=== PATIENT | female | born 1955 | race African-American/Black ===

== ENCOUNTER 2017-01-20 17:26 | Inpatient (IN) ==
[2017-01-20] MEDS ORDERED: ALBUTEROL 2.5 MG/3 ML NEB RESP TX PRN (21:15)
[2017-01-20] MEDS ORDERED: ONDANSETRON 4 MG/2 ML VIAL IV PRN (21:17)
--- NOTE | 2017-01-20 21:27 | Hospitalist History & Physical ---
Assessment and Plan (1) COPD exacerbation Status: Acute Current Visit: Yes (2) Coronary artery disease Status: Acute Current Visit: Yes (3) Hypertension Status: Acute Current Visit: Yes (4) Tobacco abuse Status: Acute Current Visit: Yes (5) Tobacco abuse counseling Status: Acute Assessment and plan: Our plan for this patient 1. Admit the patient her service 2. Scheduled duo nebs 3. As needed albuterol 4. Doxycycline since she is allergic to fluoroquinolones and penicillin 5. Pulmonary consult 6. Inhaled corticosteroids 7. Hold Coumadin and monitor INR daily Current Visit: Yes History of Present Illness Chief complaint: Shortness of breath History of present illness: Ms. Rowland is a 61 year old female with past medical history significant for COPD hypertension and coronary artery disease who reports a 2 month history of shortness of breath. Today it seemed like her wheezing had increased. According to records from [facility] she has been in a steady decline for approximately 6 months as far as lung status. She denies any current chest pain. She is on multiple medications including inhaled steroids. She has never seen a pulmonary doctor. We accept the patient as transfer from a [place] facility although she has never been to our hospital. Home Medications Medication Instructions Recorded Confirmed Type Albuterol Sulfate [Albuterol Neb] 1 vial INH Q4HR PRN 01/20/17 01/20/17 History Metoprolol Tartrate Tab [Lopressor 25 mg PO BID 01/20/17 01/20/17 History Tab] Warfarin Sodium 2.5 mg PO DIRECTED 01/20/17 01/20/17 History Warfarin Sodium [Warfarin Sodium] 5 mg PO DIRECTED 01/20/17 01/20/17 History Allergies Allergy/AdvReac Type Severity Reaction Status Date / Time ciprofloxacin [From Cipro] Allergy Intermediate RASH Verified 01/20/17 20:10 Amoxicillin Allergy Unknown Unknown/Unable Verified 01/20/17 20:10 to obtain sulfamethoxazole AdvReac Mild Vomiting Verified 01/20/17 20:10 [From Bactrim] trimethoprim [From Bactrim] AdvReac Mild Vomiting Verified 01/20/17 20:10 Medical,Surgical,& Family Hx - Medical History Cardio: History of: Hypertension, Cardiovascular Problems (dvt 7 stents) Respiratory: History of: Respiratory Problems (emphysema) - Surgical History HEENT Surgeries: Surgical HX of: Tonsilectomy & Adenoidectomy Reproductive Surgeries: Surgical HX of;: Section, Hysterectomy - Family History Family History: Reports;: Family Heart Disease (mother mi- father heart disease , sister stents , brother mi-) - Social History Smoking Status: Current some day smoker Frequency of Alcohol Use: None Type of Drug Use: None 12 point system: reviewed and no additional remarkable complaints except as stated Exam - Constitutional Vitals: Period Temp Pulse Resp BP Sys/Yanes Pulse Ox Last 24 Hr 98.4 F 81 20 116/71 95 General appearance: under weight - Head Head exam: Present: normal inspection - Eye Eye exam: Present: EOMI Pupils: Present: HUGH - ENT ENT exam: Present: normal exam - Neck Neck exam: Present: normal inspection - Respiratory Respiratory exam: Present: prolonged expiratory phase, wheezes - Cardiovascular Cardiovascular exam: Present: regular rate and rhythm - GI/Abdominal GI/Abdominal exam: Present: normal bowel sounds - Extremities Exam Extremities exam: Present: normal inspection - Back Exam Back exam: Present: normal inspection - Neurological Exam Neurological exam: Present: alert - Psychiatric Psychiatric exam: Present: normal affect, normal mood - Skin Skin exam: Present: normal color Results - Labs Labs: Labs from outside facility displayed an INR of 3.5 magnesium of 1.9 CK-MB 2.4 myoglobin 42 troponin I less than 0.03 sodium 141 potassium 4.1 chloride 106 bicarb 25 creatinine 0.77 BUN 12 calcium 9.6 glucose 99 total bili 0.9 total protein 9.4 albumin 4.4 globulin 5 alk phos 155 ALT 25 AST 50 white count 6.15 hemoglobin 16 hematocrit 48.9 EKG normal sinus rhythm by atrial enlargement CT scan of her chest displayed severe emphysema.
[2017-01-20] MEDS: methylPREDNISolone SOD SUC 40 MG/1 ML VIAL IV SCH (21:56)
[2017-01-20] MEDS: DOXYCYCLINE HYCLATE INJ 100 MG in SODIUM CHLORIDE 0.9% 100 ML IV SCH (23:34)
[2017-01-21] MEDS: ALBUTEROL/IPRATROPIUM 3 ML NEB RESP TX SCH ×4 (01:34→20:06)
[2017-01-21] MEDS: methylPREDNISolone SOD SUC 40 MG/1 ML VIAL IV SCH ×4 (04:27→20:39)
[2017-01-21 07:38] LABS: Hematocrit 42.8 VOL% (35.7-47.0); Hemoglobin 14.3 GM/DL (12.0-16.0); Immature Granulocytes % 0.4 %; Immature Granulocytes Absolute 0.01 #; Lymphocytes # 0.6 10*3/uL (1.4-4.0); Lymphocytes % 20.3 % (21.3-54.2); Mean Corpuscular HGB Conc 33.4 GM/DL (32-36); Mean Corpuscular Hemoglobin 27 PG (27-34); Mean Corpuscular Volume 81.5 FL (87-102); Mean Platelet Volume 9.4 FL (9.6-12.0); Monocytes # 0.1 10*3/uL (0.11-0.8); Monocytes % 2.1 % (1.7-12.7); Neutrophils # 2.2 10*3/uL (1.4-7.4); Neutrophils % 77.2 % (38.7-73.9); Platelet Count 198 T/CUMM (130-400); Red Blood Count 5.25 MC/CUMM (3.8-5.5); Red Cell Distribution Width 13.3 % (9.3-17.3); White Blood Count 2.8 T/CUMM (4-12)
--- NOTE | 2017-01-21 07:51 | XRay Report ---
Portable chest Date: 01/21/2017 Clinical history: Shortness of breath Comparison: None Technique: Portable AP sitting chest Findings: The heart is small and compressed by the over expanded lungs. Calcification in the aortic knob. Calcified granulomata/nodes. Probable nipple shadow in the right midlung zone which is only identified on one film. Minimal atelectasis at the left lung base. Degenerative changes are noted with unremarkable mediastinum. Impression: COPD/bullous emphysema with evidence of old healed granulomatous disease. Atelectasis at the left lung base with chronic scarring. Probable faint nipple shadow identified only on one film. PROCEDURE INTERPRETED AT [facility] DEPARTMENT OF RADIOLOGY Final Report Signed by: Dr. Bailey Augustine
[2017-01-21 08:11] LABS: Albumin 3.1 G/DL (3.4-5.0); Bilirubin,Total 0.6 MG/DL (0.2-1.0); Calcium 8.8 MG/DL (8.5-10.1); Osmolality,Calculated 277.7 MOS/KG (273-304); Potassium 4.5 MMOL/L (3.5-5.1); Total Protein 8.4 G/DL (6.4-8.3)
[2017-01-21] MEDS: METOPROLOL TARTRATE 25 MG TABLET PO SCH ×2 (08:27→20:39)
[2017-01-21] MEDS: PANTOPRAZOLE 40 MG TABLET PO SCH (08:27)
[2017-01-21] MEDS: NICOTINE 21 MG/24 HR PATCH TRANSDERM SCH (08:27)
[2017-01-21 09:01] LABS: PT Patient Result 58.1 SECS
[2017-01-21 09:02] LABS: INR 5.5
--- NOTE | 2017-01-21 09:23 | Hospitalist Progress Note ---
Hospitalist: Subjective Interval history: Patient transferred for COPD with acute exacerbation. She states that her breathing was better but gets worse with exertion. She denies any CP. Her chronic productive cough of yellow sputum is unchanged. She has no further complaints. Exam - Constitutional Vitals: Period Temp Pulse Resp BP Sys/Yanes Pulse Ox Last 24 Hr 97 F-98.4 F 69-95 18-20 101-116/64-71 95-99 97% RA General appearance: no acute distress, under weight - Head Head exam: Present: normal inspection - Eye Eye exam: Present: EOMI Pupils: Present: HUGH - ENT ENT exam: Present: normal oropharynx - Neck Neck exam: Present: normal inspection - Respiratory Respiratory exam: Present: clear to auscultation bilaterally, prolonged expiratory phase. Absent: rales, rhonchi, wheezes - Cardiovascular Cardiovascular exam: Present: regular rate and rhythm. Absent: diastolic murmur , systolic murmur - GI/Abdominal GI/Abdominal exam: Present: normal bowel sounds, soft. Absent: guarding, tenderness - Extremities Exam Extremities exam: Absent: edema - Neurological Exam Neurological exam: Present: alert, oriented X3 - Psychiatric Psychiatric exam: Present: normal affect, normal mood - Skin Skin exam: Present: normal color, warm Results - Labs CBC & BMP: 01/21/17 06:36 01/21/17 06:36 - Impressions 1. Acute on chronic dyspnea 2. COPD with acute exacerbation 3. Tobacco use, counselled about ill health effects of smoking and encouraged cessation (10 minutes spent on counseling); on nicotine patch 4. h/o HTN: bp controlled 5. h/o recurrent DVTs; on coumadin; supratherapuetic 6. Supratherapeutic INR: 5.5; will hold coumadin 7. h/o ASCAD: on beta uzair; add baby asa; check lipids Plan: as noted above +continue steroids/bronchodilators/antibiotic/anti tussive therapy; appreciate help from pulmonary; monitor INR
[2017-01-21] MEDS: BUDESONIDE/FORMOTEROL 160-4.5 INHALER 6 GM INH SCH ×2 (09:37→20:39)
[2017-01-21] MEDS: DOXYCYCLINE HYCLATE INJ 100 MG in SODIUM CHLORIDE 0.9% 100 ML IV SCH ×2 (11:20→20:40)
--- NOTE | 2017-01-21 11:32 | Pulmonology Consult Note ---
History of Present Illness Chief complaint: COPD. Shortness of breath. History of present illness: Dinesh Villanueva, [facility], acting as scribe for Dr. Osacr Gracia Ms. Rowland is a 61-year-old -[place] female who we have been asked to see in pulmonary consultation for evaluation and treatment. The request for consultation was made by Dr. Carreno. She was transferred from [facility] secondary to increasing shortness of breath and wheeze but they could not get under good control here. She was accepted by Dr. Waterman for higher level of care. She reported an approximately 2 month long history of shortness of breath. Of note, she has a history of tobacco abuse. Upon questioning, she states that she quit smoking earlier this week. She has a productive cough with discolored sputum. She denies fever chills. On evaluation, she was found to have an acute exacerbation of COPD and was admitted for further evaluation and care. She denies any cardiac angina or palpitations. There is been no bleeding from any site. Specifically, no hemoptysis. No change in bowel or bladder habits. She denies dysphagia or reflux. No TIA symptoms or syncope. All other systems were reviewed and were negative. 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 She was a smoker until earlier this week. She states that she smoked less than 1 pack per day. She denies alcohol. Chest x-ray. Done 01/21/2017. My interpretation. Hyperinflation. COPD/ bullous emphysema. Old healed granulomatous disease. Atelectasis at the left lung base with chronic scarring. No acute infiltrate, no masses, or pulmonary edema. Laboratory: White count 2800 with 77.2% segs, 20.3% lymphs, and 2.1% monos; H&H 14.3/42.8 with low to normal indices and normal red blood cell distribution width;; platelet count 198,000; INR 5.5; creatinine 0.90, BUN 16, sodium 138, potassium 4.5; liver function tests within normal limits with the exception of a minimally elevated alkaline phosphatase; calcium 8.8, albumin 3.1, total protein 8.4 Home Medications Medication Instructions Recorded Confirmed Type Albuterol Sulfate [Albuterol Neb] 1 vial INH Q4HR PRN 01/20/17 01/20/17 History Metoprolol Tartrate Tab [Lopressor 25 mg PO BID 01/20/17 01/20/17 History Tab] Warfarin Sodium 2.5 mg PO DIRECTED 01/20/17 01/20/17 History Warfarin Sodium [Warfarin Sodium] 5 mg PO DIRECTED 01/20/17 01/20/17 History Allergies Allergy/AdvReac Type Severity Reaction Status Date / Time ciprofloxacin [From Cipro] Allergy Intermediate RASH Verified 01/20/17 20:10 Amoxicillin Allergy Unknown Unknown/Unable Verified 01/20/17 20:10 to obtain sulfamethoxazole AdvReac Mild Vomiting Verified 01/20/17 20:10 [From Bactrim] trimethoprim [From Bactrim] AdvReac Mild Vomiting Verified 01/20/17 20:10 Exam (Pulmonay) H&P - Constitutional Vitals: Period Temp Pulse Resp BP Sys/Yanes Pulse Ox Last 24 Hr 97 F-98.4 F 69-95 18-20 101-131/64-83 95-99 Exam: Psych: Oriented x 3; a pleasant and cooperative patient HEENT: Pupils, irises, sclera, conjunctiva, and eyelids are normal. The face is symmetrical without rash or masses. Lips, tongue, buccal mucosa, soft and hard palates, and pharynx are WNL Neck: Symmetrical. Thyroid was not palpated. Lymphatics: No submandibular, cervical, or supraclavicular adenopathy Chest: Symmetrical and hyperinflated with large airway and high-pitched peripheral wheezes Breasts: Deferred CV: Regular without murmur, rub, or gallop Arterial: Carotids with a good upstroke. There is no bruit. Upper extremity pulses are palpable. Lower extremity pulses are palpable. Venous: Exam of the neck, upper, and lower extremities is normal Abd: No appreciable organomegaly, masses, tenderness, or bruit; Bowel sounds are positive 4; The aorta was not palpated /Rectal: Deferred Extremities: No clubbing, cyanosis, edema, or obvious DVT; bilateral JEAN hose are in use Skin: No cancerous or infectious lesions of the exposed, examined skin; the perineal area was not examined M/S: Age appropriate loss of the normal curvature of the cervical, thoracic, and lumbar spine Neurological: Cranial nerves are intact, Long tract motor function is intact; Sensory exam was not done; gait was not tested. The remainder of the exam was noncontributory. Impression: #1: Acute exacerbation of COPD #2: Tobacco abuse #3: COPD/bullous emphysema #4: History of DVT #5: Chronic anticoagulation presently with supratherapeutic INR #6: Arteriosclerotic heart disease #7: Hypertension #8: See past history Plan: #1: Start Singulair 10 mg daily #2: Start IV Aminophyllin. Will give 250 mg bolus over 4 hours then run at 12 mg/h. #3: Check sputum for Gram stain, culture and sensitivity #4: Start Mucinex 600 mg twice daily #5: Agree with Solu-Medrol #6: Daily theophylline level beginning tomorrow #7: See orders We appreciate this consult and will follow along with you. Medical,Surgical,& Family Hx - Medical History Cardio: History of: Hypertension, Cardiovascular Problems (dvt 7 stents) Respiratory: History of: Respiratory Problems (emphysema) - Surgical History HEENT Surgeries: Surgical HX of: Tonsilectomy & Adenoidectomy Reproductive Surgeries: Surgical HX of;: Section, Hysterectomy - Family History Family History: Reports;: Family Heart Disease (mother mi- father heart disease , sister stents , brother mi-) - Social History Smoking Status: Current some day smoker Frequency of Alcohol Use: None Type of Drug Use: None Results - Labs CBC & BMP: 01/21/17 06:36 01/21/17 06:36
[2017-01-21] MEDS ORDERED: AMINOPHYLLINE 250 MG in SODIUM CHLORIDE 0.9% 100 ML IV ONE (12:00)
[2017-01-21] MEDS: MONTELUKAST 10 MG TABLET PO SCH (12:27)
[2017-01-21] MEDS ORDERED: AMINOPHYLLINE 250 MG in SODIUM CHLORIDE 0.9% 240 ML IV SCH (16:00)
[2017-01-22] MEDS: ALBUTEROL/IPRATROPIUM 3 ML NEB RESP TX SCH ×4 (01:58→20:04)
[2017-01-22] MEDS: methylPREDNISolone SOD SUC 40 MG/1 ML VIAL IV SCH ×4 (03:14→20:44)
[2017-01-22 06:17] LABS: Hematocrit 40.7 VOL% (35.7-47.0); Hemoglobin 13.9 GM/DL (12.0-16.0); Immature Granulocytes Absolute 0.11 #; Lymphocytes # 0.5 10*3/uL (1.4-4.0); Lymphocytes % 4.3 % (21.3-54.2); Mean Corpuscular HGB Conc 34.2 GM/DL (32-36); Mean Corpuscular Hemoglobin 28 PG (27-34); Mean Corpuscular Volume 81.4 FL (87-102); Mean Platelet Volume 9.7 FL (9.6-12.0); Monocytes # 0.2 10*3/uL (0.11-0.8); Monocytes % 2.2 % (1.7-12.7); Neutrophils # 10.3 10*3/uL (1.4-7.4); Neutrophils % 92.5 % (38.7-73.9); Platelet Count 225 T/CUMM (130-400); Red Cell Distribution Width 13.3 % (9.3-17.3); White Blood Count 11.1 T/CUMM (4-12)
[2017-01-22 06:40] LABS: INR 3.6
[2017-01-22 06:43] LABS: PT Patient Result 37.7 SECS; Partial Thromboplastin Time 43.9 SECS (0-40)
[2017-01-22 06:45] LABS: Calcium 8.7 MG/DL (8.5-10.1); Osmolality,Calculated 280.5 MOS/KG (273-304); Potassium 4.3 MMOL/L (3.5-5.1); Risk Ratio 2.44; VLDL CHOLESTEROL 13.2 MG/DL
[2017-01-22 07:51] LABS: Hypochromasia 2+; Lymphocytes 3 % (20-55); Platelet Estimate Adequate; Segmented Neutrophils 93 % (50-85); Total Cells Counted 100
[2017-01-22] MEDS: ASPIRIN EC 81 MG TABLET PO SCH (08:17)
[2017-01-22] MEDS: PANTOPRAZOLE 40 MG TABLET PO SCH (08:17)
[2017-01-22] MEDS: METOPROLOL TARTRATE 25 MG TABLET PO SCH ×2 (08:17→20:44)
[2017-01-22] MEDS: MONTELUKAST 10 MG TABLET PO SCH (08:17)
[2017-01-22] MEDS: NICOTINE 21 MG/24 HR PATCH TRANSDERM SCH (08:17)
[2017-01-22] MEDS: BUDESONIDE/FORMOTEROL 160-4.5 INHALER 6 GM INH SCH ×2 (08:18→20:44)
[2017-01-22] MEDS: DOXYCYCLINE HYCLATE INJ 100 MG in SODIUM CHLORIDE 0.9% 100 ML IV SCH ×2 (08:32→20:44)
--- NOTE | 2017-01-22 09:27 | Hospitalist Progress Note ---
Hospitalist: Subjective Interval history: Patient started on aminophylline by pulmonary on yesterday. She states that her breathing has improved. Her cough is dry. She has no further complaints. Exam - Constitutional Vitals: Period Temp Pulse Resp BP Sys/Yanes Pulse Ox Last 24 Hr 96.5 F-97.8 F 68-86 16-20 131-148/69-85 93-99 General appearance: no acute distress, under weight - Head Head exam: Present: normal inspection - Eye Eye exam: Present: EOMI Pupils: Present: HUGH - Respiratory Respiratory exam: Present: clear to auscultation bilaterally. Absent: rales, rhonchi, wheezes (prolonged expiratory phase) - Cardiovascular Cardiovascular exam: Present: regular rate and rhythm - GI/Abdominal GI/Abdominal exam: Present: normal bowel sounds, soft. Absent: tenderness - Extremities Exam Extremities exam: Absent: edema - Neurological Exam Neurological exam: Present: alert, oriented X3 - Psychiatric Psychiatric exam: Present: normal affect, normal mood Results - Labs CBC & BMP: 01/22/17 05:14 01/22/17 05:14 - Impressions 1. Acute on chronic dyspnea: improving 2. COPD with acute exacerbation: being seen by pulmonary appreciate help. On theodur; Theodur level 6.5 3. Tobacco use, counselled about ill health effects of smoking and encouraged cessation (10 minutes spent on counseling); on nicotine patch 4. h/o HTN: bp controlled 5. h/o recurrent DVTs; on coumadin as outpatient; supratherapuetic INR but improved 6. Supratherapeutic INR: 3.6; continue to hold coumadin 7. h/o ASCAD: on beta uzair; add baby asa; check lipids Plan: as noted above; appreciate help from pulmonary; continue steroids/ bronchodilator therapy/leukotrien inhibitor therapy
--- NOTE | 2017-01-22 09:33 | Pulmonology Progress Note ---
Pulmonary - PN: Subj Interval history: There is a 61-year-old black female whom I saw in pulmonary consultation 2016. My impressions were. #1: Acute exacerbation of COPD #2: Tobacco abuse #3: COPD/bullous emphysema #4: History of DVT #5: Chronic anticoagulation presently with supratherapeutic INR #6: Arteriosclerotic heart disease #7: Hypertension #8: See past history 01/22/2017. Patient was started on IV Aminophyllin and Singulair. Her wheezing is a lot better. I am converting her present IV theophylline dose to theophylline 150 mg twice daily. Patient is growing a gram-negative rick and she has some gram-positive cocci. Her antibiotic is doxycycline. I am going to add gentamicin. All started 50 mg IV piggyback every 8 hours have asked pharmacology to help with adjustment. Will follow daily BUN and creatinine. Present creatinine is 0.90 INR has dropped from 5.5-3.6. White count is now 11, 192.56. Overall the patient says she feels better today. Physical exam. Vital signs. See below. Afebrile. General. No distress comfortable sitting in bed Psychiatric oriented 3 Neurological. Cranial nerves are intact long track motor functions intact Face. Symmetrical. No edema of the tongue or lips. Neck symmetrical. No meningismus Lymphatics. No submandibular cervical supraclavicular or epitrochlear adenopathy. Chest. Symmetrical. Expiration is prolonged. Previously noted large and small airway wheezes are markedly improved. There is a good bit of loose congestion which represents secretions she should be able to mobilize soon Heart regular. Abdomen benign Extremities no clubbing no edema no deep venous thrombophlebitis The remainder the physical exam is negative. Plan: 01/21/2070 #1: Start Singulair 10 mg daily #2: Start IV Aminophyllin. Will give 250 mg bolus over 4 hours then run at 12 mg/h. #3: Check sputum for Gram stain, culture and sensitivity #4: Start Mucinex 600 mg twice daily #5: Agree with Solu-Medrol #6: Daily theophylline level beginning tomorrow #7: See orders 01/22/2017. 1. See today's note above. 2. Convert theophylline 150 mg twice daily 3. Start gentamicin. Consult pharmacology. Daily BMP 4. Await final cultures on sputum. Exam (Progress Note) - Constitutional Vitals: Period Temp Pulse Resp BP Sys/Yanes Pulse Ox Last 24 Hr 96.5 F-97.8 F 68-86 16-20 131-148/69-85 93-99 Results - Labs CBC & BMP: 01/22/17 05:14 01/22/17 05:14
[2017-01-22] MEDS: GENTAMICIN INJ 240 MG in SODIUM CHLORIDE 0.9% 100 ML IV SCH (11:16)
[2017-01-22] MEDS: THEOPHYLLINE ER 300 MG TABLET PO SCH (16:10)
[2017-01-23] MEDS: ALBUTEROL/IPRATROPIUM 3 ML NEB RESP TX SCH ×4 (01:02→19:42)
[2017-01-23] MEDS: methylPREDNISolone SOD SUC 40 MG/1 ML VIAL IV SCH ×4 (03:06→21:13)
[2017-01-23 06:47] LABS: Basophils % 0.1 % (0.0-0.8); Hematocrit 39.2 VOL% (35.7-47.0); Hemoglobin 13.2 GM/DL (12.0-16.0); Immature Granulocytes % 0.8 %; Immature Granulocytes Absolute 0.08 #; Lymphocytes # 0.4 10*3/uL (1.4-4.0); Lymphocytes % 4.1 % (21.3-54.2); Mean Corpuscular HGB Conc 33.7 GM/DL (32-36); Mean Corpuscular Hemoglobin 27 PG (27-34); Mean Corpuscular Volume 81.5 FL (87-102); Mean Platelet Volume 9.7 FL (9.6-12.0); Monocytes # 0.1 10*3/uL (0.11-0.8); Monocytes % 1.3 % (1.7-12.7); Neutrophils # 9.5 10*3/uL (1.4-7.4); Neutrophils % 93.7 % (38.7-73.9); Platelet Count 207 T/CUMM (130-400); Red Blood Count 4.81 MC/CUMM (3.8-5.5); Red Cell Distribution Width 13.4 % (9.3-17.3); White Blood Count 10.2 T/CUMM (4-12)
[2017-01-23 07:18] LABS: Calcium 8.7 MG/DL (8.5-10.1); Osmolality,Calculated 281.5 MOS/KG (273-304); Potassium 4.3 MMOL/L (3.5-5.1)
[2017-01-23 07:21] LABS: PT Patient Result 20.8 SECS
[2017-01-23 07:23] LABS: Partial Thromboplastin Time 36.4 SECS (0-40)
[2017-01-23 07:27] LABS: INR 2.1
[2017-01-23 07:48] LABS: Band Neutrophils 3 % (0-10); Hypochromasia 2+; Lymphocytes 2 % (20-55); Microcytosis Slight; Platelet Estimate Adequate; Segmented Neutrophils 93 % (50-85); Total Cells Counted 100
[2017-01-23 07:49] LABS: PT Patient Result 22.6 SECS
[2017-01-23] MEDS: THEOPHYLLINE ER 300 MG TABLET PO SCH ×2 (08:14→16:06)
[2017-01-23] MEDS: MONTELUKAST 10 MG TABLET PO SCH (08:14)
[2017-01-23] MEDS: ASPIRIN EC 81 MG TABLET PO SCH (08:14)
[2017-01-23] MEDS: NICOTINE 21 MG/24 HR PATCH TRANSDERM SCH (08:15)
[2017-01-23] MEDS: PANTOPRAZOLE 40 MG TABLET PO SCH (08:15)
[2017-01-23] MEDS: METOPROLOL TARTRATE 25 MG TABLET PO SCH ×2 (08:15→21:13)
[2017-01-23] MEDS: BUDESONIDE/FORMOTEROL 160-4.5 INHALER 6 GM INH SCH ×2 (08:16→21:13)
[2017-01-23] MEDS: DOXYCYCLINE HYCLATE INJ 100 MG in SODIUM CHLORIDE 0.9% 100 ML IV SCH (08:32)
[2017-01-23] MEDS: GENTAMICIN INJ 240 MG in SODIUM CHLORIDE 0.9% 100 ML IV SCH (10:09)
--- NOTE | 2017-01-23 10:31 | Pulmonology Progress Note ---
Pulmonary - PN: Subj Interval history: There is a 61-year-old black female whom I saw in pulmonary consultation 2016. My impressions were. #1: Acute exacerbation of COPD #2: Tobacco abuse #3: COPD/bullous emphysema #4: History of DVT #5: Chronic anticoagulation presently with supratherapeutic INR #6: Arteriosclerotic heart disease #7: Hypertension #8: See past history 01/22/2017. Patient was started on IV Aminophyllin and Singulair. Her wheezing is a lot better. I am converting her present IV theophylline dose to theophylline 150 mg twice daily. Patient is growing a gram-negative rick and she has some gram-positive cocci. Her antibiotic is doxycycline. I am going to add gentamicin. All started 50 mg IV piggyback every 8 hours have asked pharmacology to help with adjustment. Will follow daily BUN and creatinine. Present creatinine is 0.90 INR has dropped from 5.5-3.6. White count is now 11, 192.56. Overall the patient says she feels better today. 01/23/2017. Patient's breathing continues to improve. She is moving air better and expiration is more complete. She still has some wheezing. Her theophylline level was 5.8. INR is 2.1. CBC is stable. Electrolytes are normal. Creatinine is 0.9 BUN is 21. Sputum studies are growing a gram- negative rick. So far no ID and no sensitivities. Gentamicin was started on . Creatinine is stable. Physical exam. Vital signs. See below. Afebrile. General. No distress comfortable sitting in bed Psychiatric oriented 3 Neurological. Cranial nerves are intact long track motor functions intact Face. Symmetrical. No edema of the tongue or lips. Neck symmetrical. No meningismus Lymphatics. No submandibular cervical supraclavicular or epitrochlear adenopathy. Chest. Symmetrical. Expiration is prolonged. Previously noted large and small airway wheezes are markedly improved. Large and small airway wheezes are better on a daily basis and patient has much less large airway congestion now as compared to before Heart regular. Abdomen benign Extremities no clubbing no edema no deep venous thrombophlebitis The remainder the physical exam is negative. Plan: 01/21/2070 #1: Start Singulair 10 mg daily #2: Start IV Aminophyllin. Will give 250 mg bolus over 4 hours then run at 12 mg/h. #3: Check sputum for Gram stain, culture and sensitivity #4: Start Mucinex 600 mg twice daily #5: Agree with Solu-Medrol #6: Daily theophylline level beginning tomorrow #7: See orders 01/22/2017. 1. See today's note above. 2. Convert theophylline 150 mg twice daily 3. Start gentamicin. Consult pharmacology. Daily BMP 4. Await final cultures on sputum. 01/23/2017. 1. See today's note above. 2. Gentamicin 3. Sputum. Gram-negative rods. ID and sensitivities are pending Exam (Progress Note) - Constitutional Vitals: Period Temp Pulse Resp BP Sys/Yanes Pulse Ox Last 24 Hr 97.4 F-98 F 66-92 16-20 116-153/66-87 93-99 Results - Labs CBC & BMP: 01/23/17 05:57 01/23/17 05:57
--- NOTE | 2017-01-23 12:17 | Hospitalist Progress Note ---
Assessment and Plan (1) Lower respiratory infection Status: Acute Assessment and plan: Patient has isolated suggestion of staphylococcal species as well as gram- negative load. Patient does have COPD with a outpatient failure of treatment. Patient will be put on aztreonam 1 g every 8 hours and vancomycin 1.25 g IV every 12 hours will get pharmacy consultation for pharmacokinetics and dosing of subsequent infusions of vancomycin level by protocol will be done with the fourth dose. Discontinue gentamicin and discontinue doxycycline Current Visit: Yes (2) COPD exacerbation Status: Acute Assessment and plan: This is most likely bacterial exacerbation of chronic obstructive pulmonary disease. Patient with active bronchiolitis at presentation. She had some purulence of the sputum with aspiration of the above-mentioned organisms. Whilst the patient is he will be treated with IV antibiotic subsequent to verification of the isolates. If he is more expectoration the patient is here we should obtain a annual sputum because cristina can change. Current Visit: Yes Hospitalist: Subjective Interval history: Patient has been seen interviewed and examined and chart has been reviewed. Patient admitted to the hospital with acute exacerbation of COPD. Sputum obtained does show a few epithelial cells few white cells and has grown gram- positive cocci in chains pairs and clusters as well as gram-negative Anderson mammogram is still pending at this point. Because of this gram-negative anderson, patient has been started on IV gentamicin. No sitting about the prior history of this patient has will probably had resistant Pseudomonas other resistant organisms. No Tuesday was treated with this patient with antibiotics because of a preceding history of COPD and is acute exacerbation, preferably patient needs to be on aztreonam 1 g IV every 8 hours and vancomycin 1.25 g every 12 hours. Await the final results of sputum cultures. Exam - Constitutional Vitals: Period Temp Pulse Resp BP Sys/Yanes Pulse Ox Last 24 Hr 97.4 F-98 F 64-92 16-20 116-159/66-83 93-99 General appearance: no acute distress, under weight - Head Head exam: Present: normal inspection - Eye Eye exam: Present: EOMI Pupils: Present: HUGH - ENT ENT exam: Present: normal oropharynx - Respiratory Respiratory exam: Present: clear to auscultation bilaterally - Cardiovascular Cardiovascular exam: Present: regular rate and rhythm - Extremities Exam Extremities exam: Present: normal inspection - Neurological Exam Neurological exam: Present: alert, oriented X3, CN II-XII intact - Psychiatric Psychiatric exam: Present: normal affect, normal mood - Skin Skin exam: Present: normal color, warm, dry Results - Labs CBC & BMP: 01/23/17 05:57 01/23/17 05:57 Lab Results: I have reviewed the past 24 hour labs (The portal sputum culture is noted. Antibiogram is pending)
[2017-01-23] MEDS: VANCOMYCIN INJ 750 MG in SODIUM CHLORIDE 0.9% 250 ML IV SCH (14:45)
[2017-01-23] MEDS: AZTREONAM 1,000 MG in SODIUM CHLORIDE 0.9% 50 ML IV SCH ×2 (14:45→21:13)
[2017-01-24] MEDS: ALBUTEROL/IPRATROPIUM 3 ML NEB RESP TX SCH ×4 (00:27→19:37)
[2017-01-24] MEDS: VANCOMYCIN INJ 750 MG in SODIUM CHLORIDE 0.9% 250 ML IV SCH ×2 (03:17→15:18)
[2017-01-24] MEDS: methylPREDNISolone SOD SUC 40 MG/1 ML VIAL IV SCH ×4 (03:17→20:31)
[2017-01-24] MEDS: AZTREONAM 1,000 MG in SODIUM CHLORIDE 0.9% 50 ML IV SCH ×3 (05:18→21:30)
[2017-01-24 07:32] LABS: INR 1.5; PT Patient Result 15.5 SECS
[2017-01-24 07:42] LABS: Hematocrit 40.6 VOL% (35.7-47.0); Hemoglobin 13.9 GM/DL (12.0-16.0); Immature Granulocytes % 1.4 %; Immature Granulocytes Absolute 0.12 #; Lymphocytes # 0.4 10*3/uL (1.4-4.0); Lymphocytes % 4.7 % (21.3-54.2); Mean Corpuscular HGB Conc 34.2 GM/DL (32-36); Mean Corpuscular Hemoglobin 28 PG (27-34); Mean Corpuscular Volume 82.2 FL (87-102); Mean Platelet Volume 9.9 FL (9.6-12.0); Monocytes # 0.2 10*3/uL (0.11-0.8); Monocytes % 2.5 % (1.7-12.7); Neutrophils # 7.8 10*3/uL (1.4-7.4); Neutrophils % 91.4 % (38.7-73.9); Platelet Count 226 T/CUMM (130-400); Red Blood Count 4.94 MC/CUMM (3.8-5.5); Red Cell Distribution Width 13.3 % (9.3-17.3); White Blood Count 8.6 T/CUMM (4-12)
[2017-01-24 07:54] LABS: Bilirubin,Total 0.6 MG/DL (0.2-1.0); Calcium 8.5 MG/DL (8.5-10.1); Magnesium 1.9 MG/DL (1.8-2.4); Osmolality,Calculated 280.5 MOS/KG (273-304); Phosphorous 2.9 MG/DL (2.5-4.9); Potassium 4.1 MMOL/L (3.5-5.1); Total Protein 7.7 G/DL (6.4-8.3)
[2017-01-24 08:08] LABS: Giant Platelets Few; Hypochromasia 1+; Lymphocytes 4 % (20-55); Microcytosis Slight; Platelet Estimate Adequate; Segmented Neutrophils 90 % (50-85); Total Cells Counted 100
[2017-01-24] MEDS: ASPIRIN EC 81 MG TABLET PO SCH (09:46)
[2017-01-24] MEDS: THEOPHYLLINE ER 300 MG TABLET PO SCH ×2 (09:46→17:19)
[2017-01-24] MEDS: METOPROLOL TARTRATE 25 MG TABLET PO SCH ×2 (09:47→20:31)
[2017-01-24] MEDS: MONTELUKAST 10 MG TABLET PO SCH (09:47)
[2017-01-24] MEDS: NICOTINE 21 MG/24 HR PATCH TRANSDERM SCH (09:50)
[2017-01-24] MEDS: BUDESONIDE/FORMOTEROL 160-4.5 INHALER 6 GM INH SCH ×2 (09:51→20:32)
[2017-01-24] MEDS: PANTOPRAZOLE 40 MG TABLET PO SCH (10:11)
--- NOTE | 2017-01-24 10:14 | Hospitalist Progress Note ---
Assessment and Plan (1) COPD exacerbation Status: Acute Assessment and plan: We will continue empiric antibiotic coverage and inhaled bronchodilators as previously ordered. Will recheck chest x-ray in a.m. Current Visit: Yes (2) Lower respiratory infection Status: Acute Assessment and plan: Sputum culture and sensitivity significant for [employer]. We will continue empiric antibiotic coverage as previously ordered. Current Visit: Yes Hospitalist: Subjective Interval history: Patient seen and examined; chart reviewed. No significant overnight events reported per staff. Sputum culture and sensitivity significant for [employer]. Empiric antibiotic coverage remains in progress Exam - Constitutional Vitals: Period Temp Pulse Resp BP Sys/Yanes Pulse Ox Last 24 Hr 97.2 F-99.2 F 64-80 16-20 137-160/78-91 94-100 General appearance: normal weight, no acute distress - Head Head exam: Present: normal inspection, normocephalic - Eye Eye exam: Present: EOMI Pupils: Present: HUGH, normal accommodation - ENT ENT exam: Present: normal exam, normal external ear exam, normal oropharynx - Neck Neck exam: Present: normal inspection, thyromegaly. Absent: lymphadenopathy, meningismus, tenderness - Respiratory Respiratory exam: Present: clear to auscultation bilaterally. Absent: rales, rhonchi, stridor, wheezes - Cardiovascular Cardiovascular exam: Present: regular rate and rhythm. Absent: carotid bruit, diastolic murmur, gallop, JVD, rubs, systolic murmur - GI/Abdominal GI/Abdominal exam: Present: normal bowel sounds, soft - Extremities Exam Extremities exam: Present: normal inspection, normal capillary refill, full ROM. Absent: edema - Back Exam Back exam: Present: normal inspection - Neurological Exam Neurological exam: Present: alert, oriented X3, CN II-XII intact - Psychiatric Psychiatric exam: Present: normal affect, normal mood - Skin Skin exam: Present: normal color, warm, dry Results - Labs CBC & BMP: 01/24/17 05:26 01/24/17 05:26 Lab Results: I have reviewed the past 24 hour labs
--- NOTE | 2017-01-24 12:08 | Pulmonology Progress Note ---
Pulmonary - PN: Subj Interval history: Dinesh Villanueva, BANNERBECKY-, acting as scribe for Dr. Oscar Gracia There is a 61-year-old black female who we saw in pulmonary consultation 2016. At that time, our impressions were: #1: Acute exacerbation of COPD #2: Tobacco abuse #3: COPD/bullous emphysema #4: History of DVT #5: Chronic anticoagulation presently with supratherapeutic INR #6: Arteriosclerotic heart disease #7: Hypertension #8: See past history 01/22/2017. Patient was started on IV Aminophyllin and Singulair. Her wheezing is a lot better. I am converting her present IV theophylline dose to theophylline 150 mg twice daily. Patient is growing a gram-negative rick and she has some gram-positive cocci. Her antibiotic is doxycycline. I am going to add gentamicin. All started 50 mg IV piggyback every 8 hours have asked pharmacology to help with adjustment. Will follow daily BUN and creatinine. Present creatinine is 0.90 INR has dropped from 5.5-3.6. White count is now 11, 192.56. Overall the patient says she feels better today. 01/23/2017. Patient's breathing continues to improve. She is moving air better and expiration is more complete. She still has some wheezing. Her theophylline level was 5.8. INR is 2.1. CBC is stable. Electrolytes are normal. Creatinine is 0.9 BUN is 21. Sputum studies are growing a gram- negative rick. So far no ID and no sensitivities. Gentamicin was started on . Creatinine is stable. 01/24/2017. The patient's sputum culture grew [employer]. Dr. Simmons adjusted the patient's antibiotics for this yesterday. We converted her IV Aminophyllin to oral theophylline and she is tolerating this fine. She is wheeze free. She denies a productive cough. From a pulmonary standpoint she is markedly improved. Medications been reviewed. We made no changes today. Labs been reviewed. White count is 8600 with 91.4% segs; H&H 13.9/40.6; platelet count 226,000; INR 1.5; creatinine 0.90, BUN 20, electrolytes are normal; liver function test within normal limits; calcium 8.5, albumin 3.0, total protein 7.7; theophylline level 7.7 Exam (Progress Note) - Constitutional Vitals: Period Temp Pulse Resp BP Sys/Yanes Pulse Ox Last 24 Hr 97.2 F-99.2 F 70-80 16-20 137-160/78-91 93-100 Exam: Chest is wheeze free Heart no gallop Abdomen is nontender and nondistended; bowel sounds are positive 4 Extremities with nothing to suggest acute deep venous thrombophlebitis Psychiatric oriented 3 Neurologic long-term motor function is intact Plan: Patient is markedly improved from a pulmonary standpoint. She needs to continue Singulair and theophylline at discharge. As discussed with her, she needs complete tobacco cessation. Dr. Simmons is managing the patient's antibiotics. We will sign off. Please reconsult as needed. Results - Labs CBC & BMP: 01/24/17 05:26 01/24/17 05:26
[2017-01-25] MEDS: ALBUTEROL/IPRATROPIUM 3 ML NEB RESP TX SCH ×3 (01:05→13:03)
[2017-01-25] MEDS: methylPREDNISolone SOD SUC 40 MG/1 ML VIAL IV SCH ×2 (03:43→08:48)
[2017-01-25] MEDS: VANCOMYCIN INJ 750 MG in SODIUM CHLORIDE 0.9% 250 ML IV SCH (03:46)
[2017-01-25] MEDS: AZTREONAM 1,000 MG in SODIUM CHLORIDE 0.9% 50 ML IV SCH (05:30)
[2017-01-25 07:45] LABS: Hematocrit 42.2 VOL% (35.7-47.0); Hemoglobin 14.2 GM/DL (12.0-16.0); Immature Granulocytes Absolute 0.07 #; Lymphocytes # 0.5 10*3/uL (1.4-4.0); Mean Corpuscular HGB Conc 33.6 GM/DL (32-36); Mean Corpuscular Hemoglobin 28 PG (27-34); Mean Corpuscular Volume 81.9 FL (87-102); Mean Platelet Volume 10.1 FL (9.6-12.0); Monocytes # 0.2 10*3/uL (0.11-0.8); Monocytes % 2.8 % (1.7-12.7); Neutrophils # 6.1 10*3/uL (1.4-7.4); Neutrophils % 89.2 % (38.7-73.9); Platelet Count 256 T/CUMM (130-400); Red Blood Count 5.15 MC/CUMM (3.8-5.5); Red Cell Distribution Width 13.2 % (9.3-17.3); White Blood Count 6.9 T/CUMM (4-12)
[2017-01-25 08:11] LABS: Albumin 2.9 G/DL (3.4-5.0); Bilirubin,Total 0.9 MG/DL (0.2-1.0); Calcium 8.8 MG/DL (8.5-10.1); Magnesium 2.3 MG/DL (1.8-2.4); Osmolality,Calculated 283.4 MOS/KG (273-304); Phosphorous 3.1 MG/DL (2.5-4.9); Potassium 4.5 MMOL/L (3.5-5.1); Total Protein 7.6 G/DL (6.4-8.3)
[2017-01-25] MEDS: ASPIRIN EC 81 MG TABLET PO SCH (08:47)
[2017-01-25] MEDS: THEOPHYLLINE ER 300 MG TABLET PO SCH (08:47)
[2017-01-25] MEDS: MONTELUKAST 10 MG TABLET PO SCH (08:47)
[2017-01-25] MEDS: NICOTINE 21 MG/24 HR PATCH TRANSDERM SCH (08:48)
[2017-01-25] MEDS: PANTOPRAZOLE 40 MG TABLET PO SCH (08:48)
[2017-01-25] MEDS: METOPROLOL TARTRATE 25 MG TABLET PO SCH (08:48)
[2017-01-25] MEDS: BUDESONIDE/FORMOTEROL 160-4.5 INHALER 6 GM INH SCH (08:49)
[2017-01-25] MEDS ORDERED: LEVOFLOXACIN 500 MG TABLET PO SCH (09:00)
--- NOTE | 2017-01-25 11:37 | Discharge Summary ---
Hospital Course - Hospital Course Hospital Course: This is a pleasant 61-year-old female that presented to [facility] on the night of January 20, 2017 as a direct admit from [facility] in [place], [place] for the further evaluation of shortness of breath. The patient has a medical history significant for chronic obstructive pulmonary disease, hypertension, coronary artery disease, nicotine addiction, and deep vein thrombosis. The patient has a surgical history significant for tonsillectomy, adenoidectomy, section, and hysterectomy. The patient reported the gradual onset of symptoms several months prior to presentation. She reported that her respiratory status has rapidly declined in recent months. She noted an increase in shortness of breath and wheezing on the day of presentation which prompted her to present to the ED at [facility] for further evaluation. The patient was assessed at the time of ED presentation. The patient was noted to be experiencing difficulties breathing. Prolonged inhaled bronchodilator treatments were initiated. Labs were obtained which were significant for INR 3.5, magnesium 1.9, CK-MB 2.4, myoglobin 42, troponin less than 0.03, sodium 141 , potassium 4.1, chloride 106, carbon dioxide 25, creatinine 0.77, BUN 12, calcium 9.6, glucose 99, total bilirubin 0.9, total protein 9.4, albumin 4.4, globulin 5, alkaline phosphatase 155, ALT 25, AST 50, white blood cell count 6.15, hemoglobin 16, hematocrit 40.9. EKG significant for normal sinus rhythm with biatrial enlargement. CT chest significant for severe emphysema. Hospital medicine at [facility] was contacted regarding transfer of care. The patient was subsequently transported to [facility] for direct admission to the hospitalist service for continuation of care. Empiric antibiotics, inhaled bronchodilators, intravenous corticosteroids, and gentle rehydration was initiated. Ricardo cultures were obtained. Due to the severity of the patient's pulmonary disease, a pulmonology consultation was requested. The patient was evaluated by pulmonology and recommendations were given.Sputum culture obtained at the time of admission was significant for [employer]. The patient's condition gradually improved. The patient's condition is stable. She has not experienced any significant overnight events. Today, we feel that she is indeed appropriate for discharge to follow-up with her primary care physician and technical education teacher as directed. We spoke with the patient in great detail regarding the need to refrain from tobacco use due to the severity of her chronic obstructive pulmonary disease. Smoking cessation information has been given. In addition, the patient will be discharged home on Levaquin 500 mg by mouth daily 7 days. The antimicrobial selection choice is limited due to the patient's multiple allergies. I have reviewed and agree with the discharge summary as dictated above by nurse practitioner Alfonso Saeed. - Time spent with patient Time with patient DS: Less than 30 minutes Time spent discussing smoking cessation with patient: more than 10 minutes (12 minutes) Diagnosis - Discharge Diagnosis (1) COPD exacerbation Status: Acute (2) Lower respiratory infection Status: Resolved Specialty Discharge - Follow Up or Referrals - Speciality Discharge Instructions Hospitalist Instructions: Continue to take all medications as prescribed. Please refrain from the use of tobacco use. Follow-up with technical education teacher in 7- 14 days as directed. Pulmonary Instructions: Continue to take all medications as ordered. Please refrain all from tobacco use. Follow with pulmonary in 7-14 days as directed. Discharge Plan - Discharge Data Disposition: Disch To Home/Self Care Condition at Discharge: Stable Discharge Diet: advance to your usual diet Activity: resume usual activities as tolerated Hygiene: no restrictions Weight Bearing at Discharge: full weight bearing Contact your physician if you experience:: fever over 101, Difficulty voiding, Redness or swelling, Shortness of breath - Discharge Medications New Budesonide/Formoterol 160-4.5 [Symbicort 160-4.5] 2 puff INH BID #1 inhaler Levofloxacin Tab [Levaquin Tab] 500 mg PO DAILY #7 tablet Montelukast Tab [Singulair Tab] 10 mg PO DAILY #30 tablet Theophylline ER Tab 150 mg PO BID W/MEALS #60 tablet guaiFENesin/DM LIQUID [Robitussin Dm] 10 ml PO Q4H PRN PRN Reason: Cough predniSONE TAB [PredniSONE] 5 mg PO DAILY #60 tablet Aspirin EC Tab 81 mg PO DAILY #30 tablet guaiFENesin ER TAB [Mucinex] 600 mg PO BID #60 tablet Nicotine 21 mg/24 Hr Patch [Nicoderm CQ 21 mg/24 hr Patch] 1 patch TRANSDERM DAILY #60 patch MDD 1 Continue Warfarin Sodium 2.5 mg PO DIRECTED Albuterol Sulfate [Albuterol Neb] 1 vial INH Q4HR PRN PRN Reason: Shortness Of Breath/Wheezing Metoprolol Tartrate Tab [Lopressor Tab] 25 mg PO BID #60 Warfarin Sodium 5 mg PO DIRECTED - Follow Up or Referral - Forms/Instructions Instructions: Metoprolol (By mouth), Prednisone (By mouth), Theophylline (By mouth), Aspirin (By mouth), Guaifenesin (By mouth), Nicotine (Absorbed through the skin), Levofloxacin (By mouth), Budesonide/Formoterol (By breathing), Chronic Obstructive Pulmonary Disease (DC), COPD Exacerbation, 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 Absent: conjunctival injection Pupils: Present: HUGH, normal accommodation - ENT ENT exam: Present: normal exam, normal external ear exam, normal oropharynx - Neck Neck exam: Present: normal inspection. Absent: lymphadenopathy, meningismus, tenderness, thyromegaly - Respiratory Respiratory exam: Present: clear to auscultation bilaterally. Absent: rales, rhonchi, stridor, wheezes - Cardiovascular Cardiovascular exam: Present: regular rate and rhythm. Absent: carotid bruit, diastolic murmur, gallop, JVD, rubs, tachycardia - GI/Abdominal GI/Abdominal exam: Present: normal bowel sounds, soft - Extremities Exam Extremities exam: Present: normal inspection, normal capillary refill, full ROM. Absent: edema - Back Exam Back exam: Present: normal inspection - Neurological Exam Neurological exam: Present: alert, oriented X3, CN II-XII intact - Psychiatric Psychiatric exam: Present: normal affect, normal mood - Skin Skin exam: Present: normal color, warm, dry Discharge Results Labs on day of discharge: Labs from last 24 hours 01/25/17 01/25/17 06:05 06:05 WBC 6.9 RBC 5.15 Hgb 14.2 Hct 42.2 MCV 81.9 L MCH 28 MCHC 33.6 RDW 13.2 Plt Count 256 MPV 10.1 Neut % (Auto) 89.2 H Lymph % (Auto) 7.0 L Ballard % (Auto) 2.8 Eos % (Auto) 0.0 Baso % (Auto) 0.0 Neut # (Auto) 6.1 Lymph # (Auto) 0.5 L Ballard # (Auto) 0.2 Eos # (Auto) 0.0 Baso # (Auto) 0.0 Immature Gran % 1.0 Nucleated RBC % 0.0 Immature Gran # 0.07 Nucleated RBCs # 0.00 Immature Plt Fraction 0.0 Sodium 140 Potassium 4.5 Chloride 103 Carbon Dioxide 29 Anion Gap 12.5 BUN 20 H Creatinine 0.90 GFR Calculation 70 BUN/Creatinine Ratio 22.00 H Glucose 126 H Calculated Osmolality 283.4 Calcium 8.8 Phosphorus 3.1 Magnesium 2.3 Total Bilirubin 0.90 AST 23 ALT 23 Alkaline Phosphatase 108 Total Protein 7.6 Albumin 2.9 L Globulin 4.7 H Albumin/Globulin Ratio 0.6 L DS: Provider Date of admission: 01/20/17 19:29 Primary care physician: Oscar Hauser Attending physician on admission: Grant Waterman MD Consults: 01/20/17 21:08 Consult to Dietitian [CONS] Routine Reason for Dietitian: Other 01/20/17 21:16 Consult to Physician [CONS] Routine Comment: SOB, hx asthma Consulting Provider: Oscar Gracia Consult to Specialist Group: Pulmonology When should Consulting Provider be notified: In am Person Notified: Dinesh Date Notified: 01/21/17 01/23/17 12:19 Consult to Pharmacy [CONS] Routine Reason for Pharmacy Consult: Dose/Manage Vancomycin Discharging clinician: Alfonso Saeed CNP
[2017-01-25] MEDS ORDERED: predniSONE 5 MG TABLET PO SCH (12:00)
[2017-01-25 12:37] VITALS: BP 142/83
== END 2017-01-25 14:00 | disposition home or self-care (01) | DRG 140 ==
LOC: SUATTDRO 19:29 → N.5E 19:29
PROVIDERS: ADMIT Internal Medicine